=== PATIENT | female | born 1975 | race American Indian/Alaskan Native ===

== ENCOUNTER 2016-06-13 10:53 | Emergency (ER) | payer OTHER, MEDICAID ==
[2016-06-13 11:13] VITALS: BP 114/64
[2016-06-13] MEDS ORDERED: MOTRIN PO ONE (12:31)
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
== END 2016-06-13 12:58 | disposition home or self-care (01) ==
LOC: ED 10:53
DX: S46.911A Strain of unspecified muscle, fascia and tendon at shoulder and upper arm level, right arm, initial encounter (principal); S53.401A Unspecified sprain of right elbow, initial encounter; X58.XXXA Exposure to other specified factors, initial encounter; Y93.9 Activity, unspecified; Y92.9 Unspecified place or not applicable; Y99.9 Unspecified external cause status
CPT/HCPCS: 72040; 99283

== ENCOUNTER 2017-02-15 10:16 | Emergency (ER) | payer SELFPAY ==
[2017-02-15 10:54] LABS: Bilirubin,Urine NEG (Negative); Blood,Urine SM (Negative); Ketones,Urine NEG (Negative); Leukocyte Esterase,Urine TR (Negative); Mucus,Urine FEW /HPF; Nitrite,Urine NEG (Negative); Protein,Urine <15 mg/dL mg/dL (Negative); Urobilinogen,Urine < 2.0 mg/dL (<2.0)
[2017-02-15 10:58] LABS: Basophils % (Auto) 1.1 % (0.0-1.8); Eosinophils % (Auto) 0.9 % (0.0-4.3); Hematocrit 36.2 % (30.3-42.9); Hemoglobin 11.9 gm/dl (10.1-14.3); Mean Corpuscular HGB Conc 33 % (30-34); Mean Corpuscular Hemoglobin 29 pg (28-32); Mean Corpuscular Volume 90 fl (79-97); Platelet Count 416 K/mm3 (140-440); Red Blood Count 4.04 M/mm3 (3.65-5.03); Red Cell Distribution Width 13.9 % (13.2-15.2); White Blood Count 8.4 K/mm3 (4.5-11.0)
[2017-02-15 11:25] LABS: Alanine Aminotransferase 9 units/L (7-56); Albumin 4.2 g/dL (3.9-5); Albumin/Globulin Ratio 1.3 %; Alkaline Phosphatase 82 units/L (35-129); Anion Gap 21 mmol/L; BUN/Creatinine Ratio 10; Blood Urea Nitrogen 11 mg/dL (7-17); Calcium 9.9 mg/dL (8.4-10.2); Carbon Dioxide 21 mmol/L (22-30); Chloride 104.7 mmol/L (98-107); Glucose 100 mg/dL (65-100); Lipase 26 units/L (13-60); Potassium 3.7 mmol/L (3.6-5.0); Sodium 143 mmol/L (137-145); Total Protein 7.5 g/dL (6.3-8.2)
[2017-02-15 20:02] VITALS: BP 131/80
== END 2017-02-15 22:42 | disposition left against medical advice (07) ==
LOC: ED 10:16
DX: R10.9 Unspecified abdominal pain (principal); R51 Headache; Z53.21 Procedure and treatment not carried out due to patient leaving prior to being seen by health care provider
CPT/HCPCS: 36415; 80053; 81001; 83690; 85025

== ENCOUNTER 2017-05-26 10:49 | Inpatient (IN) | payer MEDICAID ==
[2017-05-26] MEDS ORDERED: ASPIRIN PO ONE (11:16)
[2017-05-26 11:39] LABS: Basophils % (Auto) 0.6 % (0.0-1.8); Eosinophils % (Auto) 0.7 % (0.0-4.3); Hematocrit 36.7 % (30.3-42.9); Hemoglobin 11.9 gm/dl (10.1-14.3); Lymphocytes # (Auto) 2.1 K/mm3 (1.2-5.4); Lymphocytes % (Auto) 32.5 % (13.4-35.0); Mean Corpuscular HGB Conc 33 % (30-34); Mean Corpuscular Hemoglobin 30 pg (28-32); Mean Corpuscular Volume 91 fl (79-97); Monocytes # (Auto) 0.5 K/mm3 (0.0-0.8); Monocytes % (Auto) 7.5 % (0.0-7.3); Platelet Count 305 K/mm3 (140-440); Red Blood Count 4.03 M/mm3 (3.65-5.03)
[2017-05-26 11:52] LABS: BUN/Creatinine Ratio 20; Blood Urea Nitrogen 18 mg/dL (7-17); Calcium 9.6 mg/dL (8.4-10.2); Hemolysis Index 10
--- NOTE | 2017-05-26 20:55 | Emergency Department Report ---
HPI - General Chief Complaint: Chest Pain Time Seen by Provider: 05/26/17 20:43 - HPI HPI: Room 18 The patient is a 42-year-old female presenting with a chief complaint of chest pain. Patient states she's had intermittent palpitations since January 2017 and has been scheduled for follow-up with a deputy attorney general at [place]. The patient states 4 days ago she started having constant dull substernal chest pain associated with shortness of breath and right jaw pain. The patient denies nausea/vomiting or diaphoresis. The patient also states sometimes when drinking and feels like food gets stuck. The patient states she's never had a stress test or cardiac catheterization. Location: Chest, see above Duration: [See above] Quality: Dull Severity: Currently 0/10 Modifying factors: [see above] Context: [see above] Mode of transportation: [not driving] ED Past Medical Hx - Past Medical History Previous Medical History?: Yes Hx Seizures: Yes Additional medical history: INTERSTITIAL CYSTITIS. Migraine headaches, hypercholesterolemia - Surgical History Past Surgical History?: Yes Additional Surgical History: TUBAL LIGATION, Hysterectomy, Vaginal cuff abscess surgery, tonsillectomy - Family History Family history: no significant - Social History Smoking Status: Never Smoker Substance Use Type: None (denies illicit drug use) - Medications Home Medications: Home Medications Medication Instructions Recorded Confirmed Last Taken Type levETIRAcetam [Keppra] 750 mg PO [facility] 01/11/13 05/26/17 05/26/17 History levETIRAcetam [Keppra] 2,250 mg PO 09/15/14 05/26/17 05/25/17 History Ergocalciferol [Vitamin D2] 1 cap PO QWEEK 05/26/17 05/26/17 05/22/17 History Folic Acid [Folvite] 1 mg PO BID 05/26/17 05/26/17 05/26/17 History Lacosamide [Vimpat] 200 mg PO BID 05/26/17 05/26/17 05/26/17 History Loratadine [Claritin] 10 mg PO DAILY 05/26/17 05/26/17 05/26/17 History Magnesium Glycinate [Mag Glycinate] 800 mg PO HS 05/26/17 05/26/17 05/25/17 History Melatonin 5 mg PO HS 05/26/17 05/26/17 05/25/17 History Ranitidine HCl [Zantac 150 MG TAB] 150 mg PO BID 05/26/17 05/26/17 05/26/17 History Riboflavin (Vitamin B2) 400 mg PO QDAY 05/26/17 05/26/17 05/26/17 History [Riboflavin] Verapamil HCl [Verapamil ER] 240 mg PO QDAY 05/26/17 05/26/17 05/26/17 History Zonisamide 300 mg PO HS 05/26/17 05/26/17 05/25/17 History ED Review of Systems ROS: Stated complaint: CHEST PAIN Other details as noted in HPI Comment: All other systems reviewed and negative Constitutional: denies: diaphoresis Respiratory: shortness of breath Cardiovascular: chest pain Gastrointestinal: denies: nausea, vomiting Musculoskeletal: back pain Skin: denies: rash, lesions Physical Exam - Physical Exam Vital Signs: Vital Signs 05/26/17 11:11 Temperature 98.5 F Pulse Rate 80 Respiratory 16 Rate Blood Pressure 106/60 O2 Sat by Pulse 98 Oximetry Physical Exam: GENERAL: The patient is well-developed well-nourished female lying on stretcher not appearing to be in acute distress. [] HEENT: Normocephalic. Atraumatic. Extraocular motions are intact. Patient has moist mucous membranes. NECK: Supple. Trachea midline CHEST/LUNGS: Clear to auscultation. There is no respiratory distress noted. HEART/CARDIOVASCULAR: Regular. There is no tachycardia. There is no gallop rub or murmur. ABDOMEN: Abdomen is soft, nontender. Patient has normal bowel sounds. There is no abdominal distention. SKIN: There is no rash. There is no edema. There is no diaphoresis. NEURO: The patient is awake, alert, and oriented. The patient is cooperative. The patient has normal speech MUSCULOSKELETAL: There is no evidence of acute injury. ED Course Vital Signs 05/26/17 11:11 Temperature 98.5 F Pulse Rate 80 Respiratory 16 Rate Blood Pressure 106/60 O2 Sat by Pulse 98 Oximetry ED Medical Decision Making - Lab Data Result diagrams: 05/26/17 11:19 05/26/17 11:19 Laboratory Tests 05/26/17 05/26/17 05/26/17 11:19 11:19 14:54 WBC 6.5 RBC 4.03 Hgb 11.9 Hct 36.7 MCV 91 MCH 30 MCHC 33 RDW 14.0 Plt Count 305 Lymph % (Auto) 32.5 [place] % (Auto) 7.5 H Eos % (Auto) 0.7 Baso % (Auto) 0.6 Lymph # 2.1 [place] # 0.5 Eos # 0.0 Baso # 0.0 Seg Neutrophils % 58.7 Seg Neutrophils # 3.8 Sodium 140 Potassium 4.7 Chloride 104.8 Carbon Dioxide 22 Anion Gap 18 BUN 18 H Creatinine 0.9 Estimated GFR > 60 BUN/Creatinine Ratio 20 Glucose 94 Calcium 9.6 Troponin T < 0.010 < 0.010 05/26/17 17:10 WBC RBC Hgb Hct MCV MCH MCHC RDW Plt Count Lymph % (Auto) [place] % (Auto) Eos % (Auto) Baso % (Auto) Lymph # [place] # Eos # Baso # Seg Neutrophils % Seg Neutrophils # Sodium Potassium Chloride Carbon Dioxide Anion Gap BUN Creatinine Estimated GFR BUN/Creatinine Ratio Glucose Calcium Troponin T < 0.010 - EKG Data -: EKG Interpreted by Me EKG shows normal: sinus rhythm Rate: normal - EKG Data When compared to previous EKG there are: previous EKG unavailable Interpretation: other (no ischemic changes seen) - Radiology Data Radiology results: image reviewed (chest x-ray) interpreted by me: Chest x-ray-no focal infiltrates, no pneumothorax - Differential Diagnosis ACS, GERD, pericarditis, achalasia Critical care attestation.: If time is entered above; I have spent that time in minutes in the direct care of this critically ill patient, excluding procedure time. ED Disposition Clinical Impression: Chest pain Disposition: OP ADMIT IP TO THIS HOSP Is pt being admited?: Yes Does the pt Need Aspirin: Yes Condition: Fair Instructions: Chest Pain (ED) Referrals: TOMMIE STANLEY [Other] - 3-5 Days Time of Disposition: 21:30 (hospitalist notified)
[2017-05-26] MEDS ORDERED: ASPIRIN ONE (21:07)
--- NOTE | 2017-05-26 21:40 | XRay Report ---
FINAL REPORT PROCEDURE: Portable upright chest x-ray TECHNIQUE: Chest radiograph portable upright AP view. CPT 80243 HISTORY: chest pain COMPARISON: No prior studies are available for comparison. FINDINGS: Heart: Normal. Mediastinum/Vessels: Normal. Lungs/Pleural space: Normal. Bony thorax: No acute osseous abnormality. Life support devices: None. IMPRESSION: No acute cardiopulmonary abnormality.
[2017-05-26] MEDS ORDERED: MILK OF MAGNESIA PO PRN (21:49)
[2017-05-26] MEDS ORDERED: DULCOLAX PR PRN (21:49)
[2017-05-26] MEDS ORDERED: TYLENOL PO PRN (21:49)
[2017-05-26] MEDS ORDERED: ZOFRAN IV PRN (21:49)
[2017-05-26] MEDS ORDERED: PERCOCET 5/325 PO PRN (21:49)
--- NOTE | 2017-05-26 21:56 | History and Physical Report ---
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 They usually occur at night, lasting for 7 hours. 5 days ago she developed chest pain located in the epigastric area which she describes a dull pain, constant for 1 hours, radiating to the neck and right jaw, dizziness, she cannot identify exacerbating or relieving factors. Admits to shortness of breath, no nausea vomiting, diaphoresis. Denies caffeinated beverages Review Of Systems: Constitutional: no weight loss Ears, eyes, nose, mouth and throat: no nasal congestion, no nasal discharge, no sinus pressure, blurry vision, diplopia Neck: No neck pain or rigidity. Cardiovascular+chest pain, palpitations Respiratory: No cough Gastrointestinal: No abdominal pain, hematochezia Genitourinary : no dysuria, frequency , hematuria Musculoskeletal: no muscle ache Integumentary: no rash, no pruritis Neurological: no parathesias, focal weakness Endocrine: no cold or heat intolerance, no polyuria or polydipsia Hematologic/Lymphatic: no easy bruising, no easy bleeding, no gland swelling Allergic/Immunologic: no urticaria, no angioedema. PAST MEDICAL HISTORY: seizure PAST SURGICAL HISTORY: Hysterectomy, tonsillectomy FAMILY HISTORY: Hypertension SOCIAL HISTORY: Denies alcohol, tobacco, drugs Medications and Allergies Allergies Allergy/AdvReac Type Severity Reaction Status Date / Time lamotrigine [From Lamictal] Allergy Hives Verified 05/26/17 20:57 terbinafine [From Lamisil] Allergy Hives Verified 05/26/17 20:57 Home Medications Medication Instructions Recorded Confirmed Last Taken Type levETIRAcetam [Keppra] 750 mg PO QAM 01/11/13 05/26/17 05/26/17 History levETIRAcetam [Keppra] 2,250 mg PO HS 09/15/14 05/26/17 05/25/17 History Ergocalciferol [Vitamin D2] 1 cap PO QWEEK 05/26/17 05/26/17 05/22/17 History Folic Acid [Folvite] 1 mg PO BID 05/26/17 05/26/17 05/26/17 History Lacosamide [Vimpat] 200 mg PO BID 0205/26/17 05/26/17 History Loratadine [Claritin] 10 mg PO DAILY 05/26/17 05/26/17 05/26/17 History Magnesium Glycinate [Mag Glycinate] 800 mg PO HS 05/26/17 05/26/17 05/25/17 History Melatonin 5 mg PO HS 05/26/17 05/26/17 05/25/17 History Ranitidine HCl [Zantac 150 MG TAB] 150 mg PO BID 05/26/17 05/26/17 05/26/17 History Riboflavin (Vitamin B2) 400 mg PO QDAY 05/26/17 05/26/17 05/26/17 History [Riboflavin] Verapamil HCl [Verapamil ER] 240 mg PO QDAY 05/26/17 05/26/17 05/26/17 History Zonisamide 300 mg PO HS 05/26/17 05/26/17 05/25/17 History Exam - Physical Exam Narrative exam: Gen. appearance: Patient lying in bed in no acute distress HEENT: Normocephalic/atraumatic, pupils equal round reactive to light, extra occular movement intact, no scleral icterus, no JVD or thyromegaly or nodule, neck is supple, mucous membrane moist, no erythema or exudate Heart: S1-S2, regular rate and rhythm Lungs: Clear to auscultation bilateral breathing comfortable Abdomen: Positive bowel sounds, nontender, nondistended, no organomegaly Extremities: No edema, cyanosis, clubbing Neuro:: Oriented 3 , cranial nerves II-12 intact, speech, motor intact Skin: No rash, nodules, warm dry - Constitutional Vitals: Temp Pulse Resp BP Pulse Ox 98.2 F 59 L 14 113/64 100 05/26/17 21:11 05/26/17 21:00 05/26/17 21:00 05/26/17 21:00 05/26/17 21:12 Results - Labs CBC & Chem 7: 05/26/17 11:19 05/26/17 11:19 Labs: Abnormal lab results 05/26/17 05/26/17 Range/Units 11:19 11:19 [place] % (Auto) 7.5 H (0.0-7.3) % BUN 18 H (7-17) mg/dL - Imaging and Cardiology EKG: image reviewed Chest x-ray: image reviewed Assessment and Plan Assessment Palpitations Chest pain Plan Admit to medicine Check cardiac enzymes, stress test, TSH, consult cardiology Percocet, DVT prophylaxis Continue appropriate outpatient medications
[2017-05-26] MEDS ORDERED: NON-FORMULARY (Ranitidine Hcl [Zantac 150 Mg Tab] 150 MG) PO SCH (22:00)
[2017-05-26] MEDS ORDERED: ZONISAMIDE 300 MG PO SCH (22:00)
[2017-05-26] MEDS ORDERED: LEVETIRACETAM PO SCH (22:00)
[2017-05-26] MEDS ORDERED: NON-FORMULARY (Lacosamide [Vimpat] 200 MG) PO SCH (22:00)
[2017-05-26] MEDS ORDERED: NON-FORMULARY (Melatonin [Melatonin] 5 MG) PO SCH (22:00)
[2017-05-26] MEDS ORDERED: AMBIEN PO ONE (22:15)
[2017-05-26] MEDS ORDERED: KEPPRA PO SCH (23:00)
[2017-05-26] MEDS ORDERED: KEPPRA PO ONE (23:53)
[2017-05-26] MEDS: VIMPAT PO SCH (23:55)
[2017-05-26] MEDS: PEPCID PO SCH (23:55)
[2017-05-26] MEDS: FOLVITE PO SCH (23:55)
[2017-05-27 06:48] LABS: Hematocrit 35.8 % (30.3-42.9); Hemoglobin 11.8 gm/dl (10.1-14.3); Mean Corpuscular HGB Conc 33 % (30-34); Mean Corpuscular Hemoglobin 30 pg (28-32); Mean Corpuscular Volume 92 fl (79-97); Platelet Count 266 K/mm3 (140-440)
[2017-05-27 06:49] LABS: BUN/Creatinine Ratio 18; Blood Urea Nitrogen 16 mg/dL (7-17); Calcium 9.2 mg/dL (8.4-10.2); Hemolysis Index 5
[2017-05-27 08:13] LABS: Anisocytosis 1+; Basophils % (Manual) 0 % (0.0-1.8); Platelet Estimate Consistent w Auto; Total Cells Counted 100
[2017-05-27 09:07] VITALS: BP 105/55
--- NOTE | 2017-05-27 09:26 | Discharge Summary ---
Providers - Providers Date of Admission: 05/26/17 21:49 Attending physician: YENIFER CASH MD Hospitalization Reason for admission: chest pain and palpitations Condition: Stable Hospital course: Patient is a 42-year-old female with a history of seizure admitted to the ER with complaint of palpitations since January scheduled to see a automobiles salesperson at 3 this month. Now presents with chest pain which is the epigastric area radiating to the left jaw area. Has been going on for about 5 days. She related to the 3/10 in intensity. She did report some dizziness or shortness of breath which are now resolved. She denies any factors for chest pain. She also reports a history of GERD and has been followed by ENT and has tried an upper endoscopy in the past also Zantac without any resolution. She has not followed up with the ENT as her follow-up appointment is 3 months away. She has not had any evaluation by GI. She states that her diagnosis of GERD is more of an aspiration diagnosis no studies were done from a remote history of endoscopy many years ago. On admission patient was scheduled for stress test which was done with results read as low risk., additional recommendations continue follow-up with ENT and possible have a GI evaluation for ongoing issues. She is to continue on her seizure precautions as described. She states she has not had a seizure in many years. Follow closely with her neurologist. She does have migraines versus stasis regarding monthly. She denies that the jaw pain in spite of her mind. She does not have any migraine at this time although stated that it was noted to be given. She is on verapamil secondary to migraine. She understands to monitor her blood pressure before taking this medication. Discharge diagnosis Atypical chest pain likely secondary to GERD GERD Seizure Migraine Palpitation Disposition: - TO HOME OR SELFCARE Time spent for discharge: 35 mins Core Measure Documentation - Palliative Care Palliative Care/ Comfort Measures: Not Applicable - Core Measures Any of the following diagnoses?: none - VTE Discharge Requirements Deep Vein Thrombosis/Pulmonary Embolism Present on Admission: No Exam - Physical Exam Narrative exam: VITAL SIGNS: Reviewed. GENERAL: The patient appeared well nourished and normally developed. Vital signs as documented. HEAD: No signs of head trauma. EYES: Pupils are equal. Extraocular motions intact. EARS: Hearing grossly intact. MOUTH: Oropharynx is normal. NECK: No adenopathy, no JVD. CHEST: Chest with clear breath sounds bilaterally. No wheezes, rales, or rhonchi. CARDIAC: Regular rate and rhythm. S1 and S2, without murmurs, gallops, or rubs. VASCULAR: No Edema. Peripheral pulses normal and equal in all extremities. ABDOMEN: Soft, without detectable tenderness. No sign of distention. No rebound or guarding, and no masses palpated. Bowel Sounds normal. MUSCULOSKELETAL: Good range of motion of all major joints. Extremities without clubbing, cyanosis or edema. NEUROLOGIC EXAM: Alert and oriented x 3. No focal sensory or strength deficits. Speech normal. Follows commands. PSYCHIATRIC: Mood normal. SKIN: No rash or lesions. - Constitutional Vitals: Temp Pulse Resp BP Pulse Ox 98.4 F 66 18 105/55 99 05/27/17 09:05 05/27/17 09:05 05/27/17 09:05 05/27/17 09:05 05/27/17 09:05 Plan Activity: advance as tolerated, fall precautions Diet: low fat Special Instructions: record daily weights, record daily BP diary Additional Instructions: Follow with automobiles salesperson at [place],. Follow with Primary Neurologist. Follow with ENT. Follow up with: TOMMIE STANLEY [Other] - 3-5 Days Prescriptions: Pantoprazole [Protonix TAB] 40 mg PO QDAY #30 tablet
[2017-05-27] MEDS ORDERED: NON-FORMULARY (Levetiracetam [Keppra Tab] 750 MG) PO SCH (10:00)
[2017-05-27] MEDS ORDERED: RIBOFLAVIN 400 MG PO SCH (10:00)
[2017-05-27] MEDS ORDERED: CALAN SR PO SCH (10:00)
[2017-05-27] MEDS ORDERED: KEPPRA PO SCH (10:00)
[2017-05-27] MEDS ORDERED: LOVENOX SUB-Q SCH ×2 (10:00)
[2017-05-27] MEDS ORDERED: VERAPAMIL HCL 240 MG PO SCH (10:00)
--- NOTE | 2017-05-27 10:35 | Treadmill Report ---
REGULAR STRESS TEST REPORT REASON FOR TEST: Chest pain. The patient exercised for 6 minutes of a Han protocol, the test was held in stage I. She achieved 4.5-5 METs. Peak heart rate was 160 beats per minute. Peak blood pressure was 136/71. There was no chest pain. Test was stopped for fatigue. Baseline ECG was normal sinus rhythm. With exercise, there were no ST changes of ischemia. No significant dysrhythmias. CONCLUSION: 1. Below average exercise capacity. 2. No chest pain with exercise. 3. No ST changes of ischemia. 4. No significant dysrhythmias. This is a negative exercise ECG test at low threshold exertion. The target heart rate was adequately achieved during the study. No ischemic changes and no chest pain on exercise. JOB# [id number]Y
[2017-05-27] MEDS: FOLVITE PO SCH (12:54)
[2017-05-27] MEDS: VIMPAT PO SCH (12:55)
[2017-05-27] MEDS: PEPCID PO SCH (12:56)
[2017-05-27] MEDS ORDERED: NON-FORMULARY (Melatonin [Melatonin] 5 MG) PO SCH (22:00)
[2017-05-27] MEDS ORDERED: ZONISAMIDE 300 MG PO SCH (22:00)
== END 2017-05-27 16:29 | disposition home or self-care (01) | DRG 392 ==
LOC: ED 10:49 → 4A 21:49
PROVIDERS: ADMIT Internal Medicine; ATTEND Internal Medicine
DX: K21.9 Gastro-esophageal reflux disease without esophagitis (principal); R00.2 Palpitations; G43.909 Migraine, unspecified, not intractable, without status migrainosus; R56.9 Unspecified convulsions; E78.00 Pure hypercholesterolemia, unspecified; Z98.51 Tubal ligation status; Z90.710 Acquired absence of both cervix and uterus; Z82.49 Family history of ischemic heart disease and other diseases of the circulatory system; Z88.1 Allergy status to other antibiotic agents; Z88.8 Allergy status to other drugs, medicaments and biological substances
CPT/HCPCS: 36415; 71045; 80048; 84443; 84484; 85007; 85025; 93005; 93010; 93017; 93306; 96372; J1650

== ENCOUNTER 2021-05-04 17:41 | Emergency (ER) | payer MEDICAID ==
[2021-05-04 17:50] VITALS: BP 118/64
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
== END 2021-05-04 23:50 | disposition home or self-care (01) ==
LOC: ED 17:41
DX: R22.0 Localized swelling, mass and lump, head (principal); Y04.8XXA Assault by other bodily force, initial encounter; Y93.89 Activity, other specified; Y92.89 Other specified places as the place of occurrence of the external cause; Y99.8 Other external cause status
CPT/HCPCS: 99283